=== PATIENT | male | born 1995 | race Two or more races ===

== ENCOUNTER 2021-02-19 19:13 | Emergency (ER) | payer SELFPAY ==
[~2021-02-19] VITALS: Ht 170.2 cm; Wt 83.9 kg
[2021-02-19 19:59] VITALS: BP 132/77
--- NOTE | 2021-02-19 20:02 | NUR ---
PATIENT CAME TO THE ER BED 10 BIBFAMILY MEMBER C/O RIGHT HIP ABSCESS SINCE 3x DAYS AGO. PATIENT STATES THAT HE IS UNSURE IF IT IS AN INGROWN HAIR OR BUG BITE. PATIENT AAOX4. DENIES DRUG USE. CHANGED INTO GOWN.
[2021-02-19] MEDS ORDERED: SULF1TAB48 PO (20:20)
[2021-02-19] MEDS ORDERED: CEPH500T PO (20:20)
[2021-02-19] MEDS ORDERED: IBUP-1955 PO (20:20)
== END 2021-02-19 20:52 | disposition home or self-care (01) ==
LOC: ER 19:20
DX: L73.8 Other specified follicular disorders (principal); Z79.899 Other long term (current) drug therapy